=== PATIENT | female | born 1960 | race Caucasian/White ===

== ENCOUNTER 2021-10-16 19:34 | Inpatient (IN) | payer SELFPAY ==
[2021-10-16] MEDS ORDERED: METOCLOPRAMIDE 10 MG/2 ML INJ IV ONE (20:29)
[2021-10-16] MEDS ORDERED: LACTATED RINGERS 1,000 ML IV ONE (20:29)
[2021-10-16] MEDS ORDERED: diphenhydrAMINE 50 MG/ML VIAL IV ONE (20:29)
--- NOTE | 2021-10-16 20:42 | Emergency Department Report ---
ED General Adult HPI - General Chief complaint: Syncope Stated complaint: SYNCOPE/WEAKNESS PUI?: No Time Seen by Provider: 10/16/21 20:22 Source: patient, family, EMS ( EMS documentation not available at time of chart dictation ), RN notes reviewed Mode of arrival: Stretcher Limitations: Language Barrier - History of Present Illness Initial comments: Doreen japanese interpreter [id number] This is a 61-year-old female who is currently visiting from [facility], for the past 6 months. She has a history of hypertension. She does not have a local primary care doctor. She presents to the ER today with a complaint of headache, muscle cramping and spasms, and loss of consciousness. As per the family, patient has a history of hypokalemia, and has been seen at [facility] a few months ago for low potassium levels. Patient presents to the ER today with a complaint of headache which is frontal and bitemporal, constant since 10:00 in the morning, and not described as sudden or thunderclap in nature. The patient denies loss of vision, chest pain, abdominal pain, shortness of breath, extremity weakness/numbness, and hematemesis/bright red blood per rectum. She does endorse muscular cramping. Apparently she went to an outpatient clinic, hours after her headache started, where she had a loss of consciousness. As per family she is COVID-19 vaccinated. -: Gradual, hour(s) Location: head Consistency: intermittent Improves with: none Worsens with: none - Related Data Allergies Allergy/AdvReac Type Severity Reaction Status Date / Time No Known Allergies Allergy Verified 10/16/21 21:08 ED Review of Systems ROS: Stated complaint: SYNCOPE/WEAKNESS Other details as noted in HPI Constitutional: denies: fever Eyes: denies: eye discharge, vision change ENT: denies: epistaxis Respiratory: denies: cough Cardiovascular: syncope. denies: chest pain Gastrointestinal: denies: abdominal pain, vomiting, hematemesis, melena, hematochezia Neurological: headache, weakness Hematological/Lymphatic: denies: easy bleeding ED Physical Exam - General Limitations: Language Barrier General appearance: alert, in no apparent distress - Head Head exam: Present: atraumatic, normocephalic - Eye Eye exam: Present: normal appearance, PERRL, EOMI. Absent: nystagmus - ENT ENT exam: Present: normal exam, normal orophraynx, mucous membranes moist, normal external ear exam - Neck Neck exam: Present: normal inspection, full ROM. Absent: tenderness, meningismus - Respiratory Respiratory exam: Present: normal lung sounds bilaterally. Absent: respiratory distress, wheezes, rales, rhonchi, stridor, decreased breath sounds - Cardiovascular Cardiovascular Exam: Present: regular rate, normal rhythm, normal heart sounds. Absent: bradycardia, tachycardia, irregular rhythm, systolic murmur, diastolic murmur, rubs, gallop - GI/Abdominal GI/Abdominal exam: Present: soft. Absent: distended, guarding, rebound, rigid, pulsatile mass - Extremities Exam Extremities exam: Present: normal inspection, full ROM, other (2+ pulses noted i n the bilateral upper and lower extremities. There is no palpable cord. negative Homans sign. Muscular compartments are soft. The pelvis is stable.). Absent: pedal edema, calf tenderness - Back Exam Back exam: Present: normal inspection, full ROM. Absent: tenderness, CVA tenderness (R), CVA tenderness (L), paraspinal tenderness, vertebral tenderness - Neurological Exam Neurological exam: Present: alert, oriented X3, other (No facial droop. Tongue midline. Extraocular movements intact bilaterally. Facial sensation intact to light touch in V1, V2, V3 distribution bilaterally. 5 and a 5 strength in 4 extremities. Sensation intact to light touch in 4 extremities.). Absent: motor sensory deficit - Psychiatric Psychiatric exam: Present: flat affect - Skin Skin exam: Present: warm, dry, intact, normal color. Absent: rash ED Course Vital Signs 10/16/21 10/16/21 10/16/21 20:28 21:22 21:28 Temperature 98.2 F Pulse Rate 78 Respiratory 16 16 Rate Blood Pressure 135/76 [Left] O2 Sat by Pulse 98 98 Oximetry - Reevaluation(s) Reevaluation #1: 10/16/21 22:18 Differential diagnosis, including but not limited to: Orthostasis, vagal event, structural cardiac disease, migraine headache, tension headache, cluster headache, conversion disorder, hypokalemia, intracranial hemorrhage Assessment and plan: 61-year-old female, who is afebrile, with reassuring vital signs, clinically sober, with a GCS of 15, no meningeal signs, no nuchal rigidity, nonfocal motor exam, presenting to the ER today with multiple c omplaints, including extremity cramping, headache, and loss of consciousness. Place patient on laboratory monitor. Treat her symptoms. Obtain x-ray the chest, and CT scan of the brain, CT angiogram of the brain. Discussed this with the patient and family. They articulated understanding. Leukocytosis is likely a stress reaction. Laboratory studies otherwise unremarkable, with exception of mild hypokalemia. We will replete this. Reassess after CT scans have resulted. Likely admit patient to the medical service for syncope. 10/16/21 23:02 Laboratory studies reviewed and appreciated. No further episodes of syncope. CT scan brain, CT angiogram head negative for acute findings. Repeat ex amination unchanged Dr Lalito Velásquez to admit to [facility] for syncope ED Medical Decision Making - Lab Data Result diagrams: 10/16/21 20:43 10/16/21 20:43 Vital Signs 10/16/21 10/16/21 10/16/21 20:28 21:22 21:28 Temperature 98.2 F Pulse Rate 78 Respiratory 16 16 Rate Blood Pressure 135/76 [Left] O2 Sat by Pulse 98 98 Oximetry Lab Results 10/16/21 10/16/21 10/16/21 Range/Units 20:43 20:43 20:43 WBC 19.0 H (4.5-11.0) K/mm3 RBC 4.01 (3.65-5.03) M/mm3 Hgb 11.5 (10.1-14.3) gm/dl Hct 33.2 (30.3-42.9) % MCV 83 (79-97) fl MCH 29 (28-32) pg MCHC 35 H (30-34) % RDW 11.9 L (13.2-15.2) % Plt Count 259 (140-440) K/mm3 Seg Neutrophils % K[place] PT 13.9 (12.2-14.9) Sec. INR 0.97 (0.87-1.13) Sodium 132 L (137-145) mmol/L Potassium 3.2 L (3.6-5.0) mmol/L Chloride 91.6 L (98-107) mmol/L Carbon Dioxide 24 (22-30) mmol/L Anion Gap 20 mmol/L BUN 16 (7-17) mg/dL Creatinine 0.6 (0.6-1.2) mg/dL Estimated GFR > 60 ml/min BUN/Creatinine Ratio 27 % Glucose 128 H (65-100) mg/dL Calcium 9.1 (8.4-10.2) mg/dL Magnesium 1.90 (1.7-2.3) mg/dL Total Bilirubin 0.60 (0.1-1.2) mg/dL AST 32 (5-40) units/L ALT 15 (7-56) units/L Alkaline Phosphatase 85 (35-129) units/L Troponin T < 0.010 (0.00-0.029) ng/mL Total Protein 7.8 (6.3-8.2) g/dL Albumin 4.0 (3.9-5) g/dL Albumin/Globulin Ratio 1.1 % Blood Type Antibody Screen 10/16/21 Range/Units 20:43 WBC (4.5-11.0) K/mm3 RBC (3.65-5.03) M/mm3 Hgb (10.1-14.3) gm/dl Hct (30.3-42.9) % MCV (79-97) fl MCH (28-32) pg MCHC (30-34) % RDW (13.2-15.2) % Plt Count (140-440) K/mm3 Seg Neutrophils % PT (12.2-14.9) Sec. INR (0.87-1.13) Sodium (137-145) mmol/L Potassium (3.6-5.0) mmol/L Chloride (98-107) mmol/L Carbon Dioxide (22-30) mmol/L Anion Gap mmol/L BUN (7-17) mg/dL Creatinine (0.6-1.2) mg/dL Estimated GFR ml/min BUN/Creatinine Ratio % Glucose (65-100) mg/dL Calcium (8.4-10.2) mg/dL Magnesium (1.7-2.3) mg/dL Total Bilirubin (0.1-1.2) mg/dL AST (5-40) units/L ALT (7-56) units/L Alkaline Phosphatase (35-129) units/L Troponin T (0.00-0.029) ng/mL Total Protein (6.3-8.2) g/dL Albumin (3.9-5) g/dL Albumin/Globulin Ratio % Blood Type A POSITIVE Antibody Screen Negative - EKG Data -: EKG Interpreted by [place] EKG shows normal: sinus rhythm Rate: normal - EKG Data When compared to previous EKG there are: previous EKG unavailable 10/16/21 22:15 The EKG is interpreted at 20: 50 Sinus rhythm, rate 71 bpm. Normal axis, normal P wave axis, left ventricular hypertrophy, QTC 4 5 3 ms. OK interval 207 ms. No prior for comparison. This is not a STEMI. - Radiology Data Radiology results: pending, report reviewed, image reviewed CHEST 1 VIEW 10/16/2021 8:46 PM INDICATION / CLINICAL INFORMATION: Syncope. COMPARISON: None available. FINDINGS: SUPPORT DEVICES: None. HEART / MEDIASTINUM: No significant abnormality. LUNGS / PLEURA: No significant pulmonary or pleural abnormality. No pneumothorax. ADDITIONAL FINDINGS: No significant additional findings. IMPRESSION: 1. No acute findings. Signer Name: Minal Guajardo MD Signed: 10/16/2021 8:57 PM Workstation Name: [id number] CT angio head INDICATION / CLINICAL INFORMATION: Headache / Syncope. TECHNIQUE: CT angiography of head was performed prior to and following admi nistration of 100 cc of Omnipaque 350 intravenous contrast. In addition to axial source images, reconstructed coronal and sagittal MPR series as well as thin slab coronal and sagittal MIP series were provided. . All CT scans at this location are performed using CT dose reduction for ALARA by means of automated exposure control. COMPARISON: CT head same date. FINDINGS: VASCULAR FINDINGS: INTRACRANIAL CIRCULATION: RIGHT ICA: The right petrous, cavernous, supraclinoid segments of the ICA demonstrate no significant abnormalities. The right supraclinoid bifurcation is patent. The right A1 segm ent is patent. RIGHT SRIDHAR: The right anterior cerebral artery demonstrates no evidence of aneurysm, severe stenosis, or occlusion. RIGHT MCA: The right MCA demonstrates no evidence of large vessel occlusion, aneurysm formation, or severe stenosis. LEFT ICA: The left petrous, cavernous, supraclinoid segments of the ICA demonstrate no significant abnormalities. The left supraclinoid bifurcation is patent. The left A1 segment is patent. LEFT SRIDHAR: The left SRIDHAR demonstrates no evidence of aneurysm formation, occlusion, or severe stenosis. LEFT MCA: The left MCA demonstrates no evidence of large vessel occlusion, aneurysm formation, or severe stenosis. ANTERIOR COMMUNICATING ARTERY: No significant abnormality. POSTERIOR COMMUNICATING ARTERIES: Posterior communicating arteries are bilaterally absent, a normal anatomic variant. VERTEBRAL CONFLUENCE: The vertebral confluence demonstrates no significant abnormality. BASILAR ARTERY: Basilar artery demonstrates no significant abnormality. Bifurcation and bilateral P1 segments demonstrate patency without evidence of aneurysm formation, significant stenosis, or occlusion. RIGHT AMBULATORY CARE COORDINATOR: The right AMBULATORY CARE COORDINATOR demonstrates no evidence of occlusion, aneurysm formation, or severe stenosis. LEFT AMBULATORY CARE COORDINATOR: The left AMBULATORY CARE COORDINATOR demonstrates no evidence of occlusion, aneurysm formation, or severe stenosis. DURAL SINUSES AND CORTICAL DURAL VEINS: The dural sinuses and cortical dural veins demonstrate no significant abnormalities. NONVASCULAR FINDINGS: The intracranial contents, intraorbital contents, paranasal sinuses, mastoid air cells, soft tissues and musculature of the face, soft tissues and musculature of the neck, thyroid, and upper chest demonstrate no significant abnormalities. IMPRESSION: 1. No evidence of large vessel occlusion, aneurysm formation, or severe stenosis involving the anterior or posterior intracranial arterial circulation. 2. Dural sinuses and cortical dural veins demonstrate no significant abnormalities. 3. Nonvascular structures demonstrate no significant abnormality. Signer Name: Tomas Wilson II, MD Signed: 10/16/2021 9:50 PM Workstation Name: [employer] CT HEAD WITHOUT CONTRAST INDICATION / CLINICAL INFORMATION: Headache / Syncope. TECHNIQUE: CT head was performed without administration of intravenous contrast. All CT scans at this location are performed using CT dose reduction for ALARA by means of automated exposure control. COMPARISON: None available. FINDINGS: CEREBRAL PARENCHYMA: No significant abnormality. No acute territorial infarct. HEMORRHAGE: None. EXTRA-AXIAL SPACES: Normal in size and morphology for the patient's age. VENTRICULAR SYSTEM: Normal in size and morphology for the patient's age. MIDLINE SHIFT / HERNIATION: None. CEREBELLUM / BRAINSTEM: No significant abnormality. ORBITS: Normal as visualized. SOFT TISSUES: No significant abnormality. SKULL: No significant abnormality. PARANASAL SINUSES / MASTOID AIR CELLS: Normal as visualized. ADDITIONAL FINDINGS: None. IMP RESSION: 1. No acute intracranial abnormality. Signer Name: Tomas Wilson II, MD Signed: 10/16/2021 9:46 PM Workstation Name: [employer] Critical care attestation.: If time is entered above; I have spent that time in minutes in the direct care of this critically ill patient, excluding procedure time. ED Disposition Clinical Impression: Syncope, Headache, Hypokalemia Disposition: 09 ADMITTED INPATIENT Is pt being admited?: Yes Does the pt Need Aspirin: No Condition: Good
[2021-10-16 21:05] LABS: Hematocrit 33.2 % (30.3-42.9); Hemoglobin 11.5 gm/dl (10.1-14.3); Mean Corpuscular HGB Conc 35 % (30-34); Mean Corpuscular Volume 83 fl (79-97); Platelet Count 259 K/mm3 (140-440); Red Blood Count 4.01 M/mm3 (3.65-5.03); Red Cell Distribution Width 11.9 % (13.2-15.2)
[2021-10-16 21:14] LABS: INR 0.97 (0.87-1.13)
[2021-10-16 21:35] LABS: Alanine Aminotransferase 15 units/L (7-56); Blood Urea Nitrogen 16 mg/dL (7-17); Calcium 9.1 mg/dL (8.4-10.2); Hemolysis Index 118
[2021-10-16 21:43] LABS: BUN/Creatinine Ratio 27
--- NOTE | 2021-10-16 22:01 | XRay Report ---
CHEST 1 VIEW 10/16/2021 8:46 PM INDICATION / CLINICAL INFORMATION: Syncope. COMPARISON: None available. FINDINGS: SUPPORT DEVICES: None. HEART / MEDIASTINUM: No significant abnormality. LUNGS / PLEURA: No significant pulmonary or pleural abnormality. No pneumothorax. ADDITIONAL FINDINGS: No significant additional findings. IMPRESSION: 1. No acute findings. Signer Name: Minal Guajardo MD Signed: 10/16/2021 9:57 PM Workstation Name: [id number]
[2021-10-16] MEDS ORDERED: POTASSIUM CHLORIDE ER 20 MEQ TAB PO ONE (22:14)
--- NOTE | 2021-10-16 22:50 | Cat Scan Report ---
CT HEAD WITHOUT CONTRAST INDICATION / CLINICAL INFORMATION: Headache / Syncope. TECHNIQUE: CT head was performed without administration of intravenous contrast. All CT scans at this location are performed using CT dose reduction for ALARA by means of automated exposure control. COMPARISON: None available. FINDINGS: CEREBRAL PARENCHYMA: No significant abnormality. No acute territorial infarct. HEMORRHAGE: None. EXTRA-AXIAL SPACES: Normal in size and morphology for the patient's age. VENTRICULAR SYSTEM: Normal in size and morphology for the patient's age. MIDLINE SHIFT / HERNIATION: None. CEREBELLUM / BRAINSTEM: No significant abnormality. ORBITS: Normal as visualized. SOFT TISSUES: No significant abnormality. SKULL: No significant abnormality. PARANASAL SINUSES / MASTOID AIR CELLS: Normal as visualized. ADDITIONAL FINDINGS: None. IMPRESSION: 1. No acute intracranial abnormality. Signer Name: Tomas Wilson II, MD Signed: 10/16/2021 10:46 PM Workstation Name: [id number]
--- NOTE | 2021-10-16 22:54 | Cat Scan Report ---
CT angio head INDICATION / CLINICAL INFORMATION: Headache / Syncope. TECHNIQUE: CT angiography of head was performed prior to and following administration of 100 cc of Omnipaque 350 intravenous contrast. In addition to axial source images, reconstructed coronal and sag ittal MPR series as well as thin slab coronal and sagittal MIP series were provided. . All CT scans at this location are performed using CT dose reduction for ALARA by means of automated exposure contr ol. COMPARISON: CT head same date. FINDINGS: VASCULAR FINDINGS: INTRACRANIAL CIRCULATION: RIGHT ICA: The right petrous, cavernous, supraclinoid segments of the ICA demonstrate no significant abnormalities. The right supraclinoid bifurcation is patent. The right A1 segment is patent. RIGHT SRIDHAR: The right anterior cerebral artery demonstrates no evidence of aneurysm, severe stenosis, or occlusion. RIGHT MCA: The right MCA demonstrates no evidence of large vessel occlusion, aneurysm formation, or s evere stenosis. LEFT ICA: The left petrous, cavernous, supraclinoid segments of the ICA demonstrate no significant ab normalities. The left supraclinoid bifurcation is patent. The left A1 segment is patent. LEFT SRIDHAR: The left SRIDHAR demonstrates no evidence of aneurysm formation, occlusion, or severe stenosis. LEFT MCA: The left MCA demonstrates no evidence of large vessel occlusion, aneurysm formation, or sev ere stenosis. ANTERIOR COMMUNICATING ARTERY: No significant abnormality. POSTERIOR COMMUNICATING ARTERIES: Posterior communicating arteries are bilaterally absent, a normal a natomic variant. VERTEBRAL CONFLUENCE: The vertebral confluence demonstrates no significant abnormality. BASILAR ARTERY: Basilar artery demonstrates no significant abnormality. Bifurcation and bilateral P1 segments demonstrate patency without evidence of aneurysm formation, significant stenosis, or occlusi on. RIGHT GLASS BULB MACHINE ADJUSTER: The right GLASS BULB MACHINE ADJUSTER demonstrates no evidence of occlusion, aneurysm formation, or severe stenosi s. LEFT GLASS BULB MACHINE ADJUSTER: The left GLASS BULB MACHINE ADJUSTER demonstrates no evidence of occlusion, aneurysm formation, or severe stenosis. DURAL SINUSES AND CORTICAL DURAL VEINS: The dural sinuses and cortical dural veins demonstrate no sig nificant abnormalities. NONVASCULAR FINDINGS: The intracranial contents, intraorbital contents, paranasal sinuses, mastoid air cells, soft tissues and musculature of the face, soft tissues and musculature of the neck, thyroid, and upper chest demon strate no significant abnormalities. IMPRESSION: 1. No evidence of large vessel occlusion, aneurysm formation, or severe stenosis involving the anteri or or posterior intracranial arterial circulation. 2. Dural sinuses and cortical dural veins demonstrate no significant abnormalities. 3. Nonvascular structures demonstrate no significant abnormality. Signer Name: Tomas Wilson II, MD Signed: 10/16/2021 10:50 PM Workstation Name: [id number]
[2021-10-16 23:14] LABS: Total Cells Counted 100
[2021-10-16 23:15] LABS: Basophils % (Manual) 0 % (0.0-1.8); Eosinophils % (Manual) 0 % (0.0-4.3); Monocytes % (Manual) 0 % (0.0-7.3); Platelet Estimate Consistent w Auto; RBC Morphology Normal
[2021-10-16] MEDS ORDERED: MORPHINE 4 MG/1 ML INJ IV PRN (23:26)
[2021-10-16] MEDS ORDERED: ONDANSETRON 4 MG/2 ML INJ IV PRN (23:26)
[2021-10-16] MEDS ORDERED: ACETAMINOPHEN 325 MG TAB PO PRN (23:26)
[2021-10-16] MEDS ORDERED: MORPHINE 2 MG/1 ML INJ IV PRN (23:26)
[2021-10-16] MEDS ORDERED: MAGNESIUM HYDROXIDE (MOM) ORAL LIQD UDC PO PRN (23:26)
--- NOTE | 2021-10-16 23:32 | History and Physical Report ---
History of Present Illness Date of examination: 10/16/21 Date of admission: 10/16/2021 Chief complaint: Syncope History of present illness: 61-year-old Russian female with significant past medical history of hypertension presenting to the emergency room today with headache, muscle cramping 7 spasms and syncope. Patient is said to have been having a frontal headache since 10 AM this morning. She subsequently had nausea and vomiting later in the evening. There has been no abdominal pain. No fever or chills, no neck stiffness, no blurry vision. There has been no chest pain or shortness of breath, no abdominal pain, no hematuria or dysuria. Patient has been in the [place] for about 6 months and has had no recent travels since then. Denies any sick contacts. No contact with anyone with COVID-19. Patient has had 2 doses of the COVID-19 vaccine. Daughter who was by the bedside gave most of the history and indicates that patient had a similar episode about 3 months ago and was taken to [facility] where she was diagnosed with hypokalemia. She was not admitted during that visit but had some IV potassium while in the emergency room and subsequently sent home. Work-up in the emergency room today, lab was significant for leukocytosis of 19, hypokalemia of 3.2, mild hyponatremia 132. CT of the head, CTA of the head and chest x-ray were unremarkable. Past History Past Medical History: hypertension Past Surgical History: No surgical history Social history: no significant social history Family history: no significant family history Medications and Allergies Allergies Allergy/AdvReac Type Severity Reaction Status Date / Time No Known Allergies Allergy Verified 10/16/21 21:08 Review of Systems Constitutional: no fever, no chills Ears, nose, mouth and throat: no nasal congestion, no sore throat Cardiovascular: no chest pain, no palpitations Respiratory: no cough, no shortness of breath Gastrointestinal: nausea, vomiting, no abdominal pain, no BRBPR, no melena Genitourinary Female: no flank pain, no dysuria, no hematuria Musculoskeletal: no neck pain, no low back pain Integumentary: no rash, no pruritis Neurological: syncope, headaches, no vertigo, no confusion Psychiatric: no anxiety, no depression Endocrine: no polyphagia, no polydipsia, no polyuria, no nocturia Exam - Constitutional Vitals: Temp Pulse Resp BP Pulse Ox 98.2 F 78 16 135/76 98 10/16/21 20:28 10/16/21 21:22 10/16/21 21:28 10/16/21 21:22 10/16/21 21:28 General appearance: Present: no acute distress, well-nourished - EENT Eyes: Present: PERRL, EOM intact. Absent: scleral icterus ENT: hearing intact, clear oral mucosa, dentition normal - Neck Neck: Present: supple, normal ROM - Respiratory Respiratory effort: normal Respiratory: bilateral: CTA - Cardiovascular Heart Sounds: Present: S1 & S2. Absent: gallop, systolic murmur, diastolic murmur, rub, click - Extremities Extremities: no ischemia, pulses intact, pulses symmetrical, No edema, normal temperature, normal color, Full ROM Peripheral Pulses: within normal limits - Abdominal General gastrointestinal: Present: soft, non-tender, non-distended, normal bowel sounds. Absent: mass - Integumentary Integumentary: Present: clear, warm, dry, normal turgor. Absent: rash - Musculoskeletal Musculoskeletal: strength equal bilaterally - Psychiatric Psychiatric: appropriate mood/affect, intact judgment & insight, memory intact, cooperative - Neurologic Neurologic: CNII-XII intact, no focal deficits, moves all extremities HEART Score - HEART Score Troponin: Troponin T < 0.010 ng/mL (0.00-0.029) 10/16/21 20:43 Results - Labs CBC & Chem 7: 10/16/21 20:43 10/16/21 20:43 Labs: Abnormal lab results 10/16/21 10/16/21 Range/Units 20:43 20:43 WBC 19.0 H (4.5-11.0) K/mm3 MCHC 35 H (30-34) % RDW 11.9 L (13.2-15.2) % Seg Neuts % (Manual) 98.0 H (40.0-70.0) % Lymphocytes % (Manual) 2.0 L (13.4-35.0) % Seg Neutrophils # Man 18.6 H (1.8-7.7) K/mm3 Lymphocytes # (Manual) 0.4 L (1.2-5.4) K/mm3 Sodium 132 L (137-145) mmol/L Potassium 3.2 L (3.6-5.0) mmol/L Chloride 91.6 L (98-107) mmol/L Glucose 128 H (65-100) mg/dL Assessment and Plan - Patient Problems (1) Headache Current Visit: Yes Status: Acute Plan to address problem: Etiology is unclear. Work-up so far has been negative. We will place consult to neurology for evaluation and recommendations. Meanwhile patient will be scheduled for MRI of the brain. (2) Hypokalemia Current Visit: Yes Status: Acute Plan to address problem: Potassium will be repleted and will monitor chemistry. (3) Syncope Current Visit: Yes Status: Acute Plan to address problem: Patient will be scheduled for carotid Doppler, echocardiogram. We also follow-up on MRI of the brain. (4) DVT prophylaxis Current Visit: Yes Status: Acute Plan to address problem: Patient placed on subcutaneous heparin. (5) Full code status Current Visit: Yes Status: Acute Plan to address problem: Patient is full code.
[2021-10-17 05:12] LABS: Basophils % (Auto) 0.1 % (0.0-1.8); Eosinophils # (Auto) 0.1 K/mm3 (0.0-0.4); Eosinophils % (Auto) 0.7 % (0.0-4.3); Hematocrit 33.3 % (30.3-42.9); Hemoglobin 11.1 gm/dl (10.1-14.3); Lymphocytes # (Auto) 1.5 K/mm3 (1.2-5.4); Lymphocytes % (Auto) 9.8 % (13.4-35.0); Mean Corpuscular HGB Conc 34 % (30-34); Mean Corpuscular Volume 83 fl (79-97); Monocytes # (Auto) 0.5 K/mm3 (0.0-0.8); Platelet Count 238 K/mm3 (140-440); Red Cell Distribution Width 12.2 % (13.2-15.2)
[2021-10-17 05:26] LABS: Blood Urea Nitrogen 14 mg/dL (7-17); Calcium 9.4 mg/dL (8.4-10.2); Hemolysis Index 0
[2021-10-17 05:29] LABS: BUN/Creatinine Ratio 20
[2021-10-17] MEDS ORDERED: POTASSIUM CHLORIDE ER 20 MEQ TAB PO ONE (06:02)
[2021-10-17] MEDS ORDERED: POTASSIUM CHLORIDE 10 MEQ 10 MEQ/100 ML BAG IV ONE (06:02)
--- NOTE | 2021-10-17 10:28 | Progress Note ---
Assessment and Plan Assessment and plan: 61-year-old Polish female with significant past medical history of hypertension presenting to the emergency room today with headache, muscle cramping spasms and syncope. Work-up in the emergency room revealed labs significant for leukocytosis of 19, hypokalemia of 3.2, mild hyponatremia 132. CT of the head, CTA of the head and chest x-ray were unremarkable. Headache Hypokalemia Syncope 10/17/2021. Patient reports her headache is improved but still present. CT and CTA of the head were found to be negative. Await MRI of brain results as well as echocardiogram. The daughter reports that patient was noted to have had a blood pressure in the 80s associated with a syncopal episode. I suspect patient's syncope is related to orthostasis. Check orthostatic vital signs History Interval history: No new issues overnight. Hospitalist Physical - Constitutional Vitals: Temp Pulse Resp BP Pulse Ox 98.8 F 75 22 129/73 97 10/17/21 07:55 10/17/21 07:55 10/17/21 07:55 10/17/21 07:58 10/17/21 07:55 General appearance: Present: no acute distress, well-nourished - EENT Eyes: Present: PERRL, EOM intact ENT: hearing intact, clear oral mucosa, dentition normal - Neck Neck: Present: supple, normal ROM - Respiratory Respiratory effort: normal Respiratory: bilateral: CTA - Cardiovascular Rhythm: regular Heart Sounds: Present: S1 & S2. Absent: gallop, rub - Extremities Extremities: no ischemia, No edema, Full ROM - Abdominal General gastrointestinal: soft, non-tender, non-distended, normal bowel sounds - Integumentary Integumentary: Present: clear, warm, dry - Neurologic Neurologic: CNII-XII intact, moves all extremities HEART Score - HEART Score Troponin: Troponin T < 0.010 ng/mL (0.00-0.029) 10/16/21 20:43 Results - Labs CBC & Chem 7: 10/17/21 04:49 10/17/21 04:49 Labs: Laboratory Last Values WBC 14.9 K/mm3 (4.5-11.0) H 10/17/21 04:49 RBC 4.00 M/mm3 (3.65-5.03) 10/17/21 04:49 Hgb 11.1 gm/dl (10.1-14.3) 10/17/21 04:49 Hct 33.3 % (30.3-42.9) 10/17/21 04:49 MCV 83 fl (79-97) 10/17/21 04:49 MCH 28 pg (28-32) 10/17/21 04:49 MCHC 34 % (30-34) 10/17/21 04:49 RDW 12.2 % (13.2-15.2) L 10/17/21 04:49 Plt Count 238 K/mm3 (140-440) 10/17/21 04:49 Lymph % (Auto) 9.8 % (13.4-35.0) L 10/17/21 04:49 Ashley % (Auto) 3.0 % (0.0-7.3) 10/17/21 04:49 Eos % (Auto) 0.7 % (0.0-4.3) 10/17/21 04:49 Baso % (Auto) 0.1 % (0.0-1.8) 10/17/21 04:49 Lymph # (Auto) 1.5 K/mm3 (1.2-5.4) 10/17/21 04:49 Ashley # (Auto) 0.5 K/mm3 (0.0-0.8) 10/17/21 04:49 Eos # (Auto) 0.1 K/mm3 (0.0-0.4) 10/17/21 04:49 Baso # (Auto) 0.0 K/mm3 (0.0-0.1) 10/17/21 04:49 Add Manual Diff Complete 10/16/21 20:43 Total Counted 100 10/16/21 20:43 Seg Neutrophils % 86.4 % (40.0-70.0) H 10/17/21 04:49 Seg Neuts % (Manual) 98.0 % (40.0-70.0) H 10/16/21 20:43 Band Neutrophils % 0 % 10/16/21 20:43 Lymphocytes % (Manual) 2.0 % (13.4-35.0) L 10/16/21 20:43 Reactive Lymphs % (Man) 0 % 10/16/21 20:43 Monocytes % (Manual) 0 % (0.0-7.3) 10/16/21 20:43 Eosinophils % (Manual) 0 % (0.0-4.3) 10/16/21 20:43 Basophils % (Manual) 0 % (0.0-1.8) 10/16/21 20:43 Metamyelocytes % 0 % 10/16/21 20:43 Myelocytes % 0 % 10/16/21 20:43 Promyelocytes % 0 % 10/16/21 20:43 Blast Cells % 0 % 10/16/21 20:43 Nucleated RBC % Not Reportable 10/16/21 20:43 Seg Neutrophils # 12.8 K/mm3 (1.8-7.7) H 10/17/21 04:49 Seg Neutrophils # Man 18.6 K/mm3 (1.8-7.7) H 10/16/21 20:43 Band Neutrophils # 0.0 K/mm3 10/16/21 20:43 Lymphocytes # (Manual) 0.4 K/mm3 (1.2-5.4) L 10/16/21 20:43 Abs React Lymphs (Man) 0.0 K/mm3 10/16/21 20:43 Monocytes # (Manual) 0.0 K/mm3 (0.0-0.8) 10/16/21 20:43 Eosinophils # (Manual) 0.0 K/mm3 (0.0-0.4) 10/16/21 20:43 Basophils # (Manual) 0.0 K/mm3 (0.0-0.1) 10/16/21 20:43 Metamyelocytes # 0.0 K/mm3 10/16/21 20:43 Myelocytes # 0.0 K/mm3 10/16/21 20:43 Promyelocytes # 0.0 K/mm3 10/16/21 20:43 Blast Cells # 0.0 K/mm3 10/16/21 20:43 WBC Morphology Not Reportable 10/16/21 20:43 Hypersegmented Neuts Not Reportable 10/16/21 20:43 Hyposegmented Neuts Not Reportable 10/16/21 20:43 Hypogranular Neuts Not Reportable 10/16/21 20:43 Smudge Cells Not Reportable 10/16/21 20:43 Toxic Granulation Not Reportable 10/16/21 20:43 Toxic Vacuolation Not Reportable 10/16/21 20:43 Dohle Bodies Not Reportable 10/16/21 20:43 Pelger-Huet Anomaly Not Reportable 10/16/21 20:43 Malia Rods Not Reportable 10/16/21 20:43 Platelet Estimate Consistent w auto 10/16/21 20:43 Clumped Platelets Not Reportable 10/16/21 20:43 Plt Clumps, EDTA Not Reportable 10/16/21 20:43 Large Platelets Not Reportable 10/16/21 20:43 Giant Platelets Not Reportable 10/16/21 20:43 Platelet Satelliting Not Reportable 10/16/21 20:43 Plt Morphology Comment Not Reportable 10/16/21 20:43 RBC Morphology Normal 10/16/21 20:43 Dimorphic RBCs Not Reportable 10/16/21 20:43 Polychromasia Not Reportable 10/16/21 20:43 Hypochromasia Not Reportable 10/16/21 20:43 Poikilocytosis Not Reportable 10/16/21 20:43 Anisocytosis Not Reportable 10/16/21 20:43 Microcytosis Not Reportable 10/16/21 20:43 Macrocytosis Not Reportable 10/16/21 20:43 Spherocytes Not Reportable 10/16/21 20:43 Pappenheimer Bodies Not Reportable 10/16/21 20:43 Sickle Cells Not Reportable 10/16/21 20:43 Target Cells Not Reportable 10/16/21 20:43 Tear Drop Cells Not Reportable 10/16/21 20:43 Ovalocytes Not Reportable 10/16/21 20:43 Helmet Cells Not Reportable 10/16/21 20:43 [place] Bodies Not Reportable 10/16/21 20:43 [place] Rings Not Reportable 10/16/21 20:43 Frank Cells Not Reportable 10/16/21 20:43 Bite Cells Not Reportable 10/16/21 20:43 Crenated Cell Not Reportable 10/16/21 20:43 Elliptocytes Not Reportable 10/16/21 20:43 Acanthocytes (Spur) Not Reportable 10/16/21 20:43 Rouleaux Not Reportable 10/16/21 20:43 Hemoglobin C Crystals Not Reportable 10/16/21 20:43 Schistocytes Not Reportable 10/16/21 20:43 Malaria parasites Not Reportable 10/16/21 20:43 Steven Bodies Not Reportable 10/16/21 20:43 Hem Pathologist Commnt No 10/16/21 20:43 PT 13.9 Sec. (12.2-14.9) 10/16/21 20:43 INR 0.97 (0.87-1.13) 10/16/21 20:43 Sodium 139 mmol/L (137-145) D 10/17/21 04:49 Potassium 2.8 mmol/L (3.6-5.0) L* 10/17/21 04:49 Chloride 99.3 mmol/L (98-107) 10/17/21 04:49 Carbon Dioxide 28 mmol/L (22-30) 10/17/21 04:49 Anion Gap 15 mmol/L 10/17/21 04:49 BUN 14 mg/dL (7-17) 10/17/21 04:49 Creatinine 0.7 mg/dL (0.6-1.2) 10/17/21 04:49 Estimated GFR > 60 ml/min 10/17/21 04:49 BUN/Creatinine Ratio 20 % 10/17/21 04:49 Glucose 108 mg/dL (65-100) H 10/17/21 04:49 Calcium 9.4 mg/dL (8.4-10.2) 10/17/21 04:49 Magnesium 1.90 mg/dL (1.7-2.3) 10/16/21 20:43 Total Bilirubin 0.60 mg/dL (0.1-1.2) 10/16/21 20:43 AST 32 units/L (5-40) 10/16/21 20:43 ALT 15 units/L (7-56) 10/16/21 20:43 Alkaline Phosphatase 85 units/L (35-129) 10/16/21 20:43 Troponin T < 0.010 ng/mL (0.00-0.029) 10/16/21 20:43 Total Protein 7.8 g/dL (6.3-8.2) 10/16/21 20:43 Albumin 4.0 g/dL (3.9-5) 10/16/21 20:43 Albumin/Globulin Ratio 1.1 % 10/16/21 20:43 Blood Type A POSITIVE 10/16/21 20:43 Antibody Screen Negative 10/16/21 20:43 Belcher/IV: Voiding Method Toilet Active Medications - Current Medications Current Medications: Generic Name Dose Route Start Last Admin Trade Name Freq PRN Reason Stop Dose Admin Acetaminophen 650 mg 10/16/21 23:26 Acetaminophen 325 Mg Tab PO Q4H PRN Pain MILD(1-3)/Fever >100.5/BANUELOS Magnesium Hydroxide 30 ml 10/16/21 23:26 Magnesium Hydroxide (Mom) Oral Liqd Udc PO Q4H PRN Constipation Morphine Sulfate 2 mg 10/16/21 23:26 Morphine 2 Mg/1 Ml Inj IV Q4H PRN Pain, Moderate (4-6) Morphine Sulfate 4 mg 10/16/21 23:26 Morphine 4 Mg/1 Ml Inj IV Q4H PRN Pain , Severe (7-10) Ondansetron HCl 4 mg 10/16/21 23:26 Ondansetron 4 Mg/2 Ml Inj IV Q8H PRN Nausea And Vomiting Sodium Chloride 10 ml 10/17/21 10:00 Sodium Chloride 0.9% 10 Ml Flush Syringe IV BID CARTER Sodium Chloride 10 ml 10/16/21 23:26 Sodium Chloride 0.9% 10 Ml Flush Syringe IV PRN PRN LINE FLUSH
--- NOTE | 2021-10-17 11:10 | Vascular Lab Report ---
DUPLEX DOPPLER ULTRASOUND CAROTID, BILATERAL INDICATION / CLINICAL INFORMATION: Syncope. COMPARISON: None available. FINDINGS: RIGHT CAROTID: - PLAQUE ESTIMATE (%): < 50% - CCA velocity: 95 cm/sec. - ICA peak systolic velocity: 124 cm/sec. - ICA/CCA PSV Ratio: 1.3 Right Vertebral Artery: Antegrade flow. LEFT CAROTID: - PLAQUE ESTIMATE: < 50% - CCA velocity: 101 cm/sec. - ICA peak systolic velocity: 98 cm/sec. - ICA/CCA PSV Ratio: 0.97 Left Vertebral Artery: Antegrade flow. IMPRESSION: 1. Right Internal Carotid Artery: Less than 50% diameter stenosis. 2. Left Internal Carotid Artery: Less than 50% diameter stenosis. Velocity criteria are extrapolated from diameter data as defined by the Society of Radiologists in Ul trasound Consensus Conference, Radiology 2003; 229;340-346. NO STENOSIS (NORMAL) * Plaque = none; ICA PSV < 125 cm/sec; ICA/CCA PSV Ratio < 2.0 <50% STENOSIS * Plaque < 50%; ICA PSV < 125 cm/sec; ICA/CCA PSV Ratio < 2.0 50-69% STENOSIS * Plaque > 50%; ICA PSV = 125-230 cm/sec; ICA/CCA PSV Ratio = 2.0-4.0 >70% BUT <100% STENOSIS * Plaque > 50%; ICA PSV > 230 cm/sec; ICA/CCA PSV Ratio > 4.0 NEAR OCCLUSION * Plaque = visible lumen; ICA PSV = high/low/none; ICA/CCA PSV Ratio = variable TOTAL OCCLUSION * Plaque = no lumen; ICA PSV = none; ICA/CCA PSV Ratio = N/A Signer Name: Jose A Barksdale MD Signed: 10/17/2021 11:05 AM Workstation Name: [id number]
--- NOTE | 2021-10-17 15:44 | Consultation ---
History of Present Illness Consult date: 10/17/21 Reason for Consult: Headache Chief complaint: Headache History of present illness: 61 yo female with htn who presents with waking up yesterday morning with a bifrontal, retro-orbital headache with an "explosive" sensation of headache that is throbbing in nature. She notes that her blood pressure yesterday morning was 160s/103. Notes no positional component. Currently, she notes her headache has resolved. In fact, the headache had started to improve yesterday evening when she presented to the ED (BP at the time had come down). She notes complete resolution of the headache was noted this morning when she woke up. She has otherwise been in her usual state of health. She notes a similar episode in June (2020) where she was evaluated at [facility] and noted with the same headache which improved after her hypokalemia was corrected. She was given a 10-day supply of potassium tabs at the time. She notes compliance with all her medications as prescribed. She denies any changes in her vision. Home meds include losartan and hctz. Past History Past Medical History: hypertension Past Surgical History: No surgical history Social history: no significant social history Family history: no significant family history Medications and Allergies Allergies Allergy/AdvReac Type Severity Reaction Status Date / Time No Known Allergies Allergy Verified 10/16/21 21:08 Active Meds: Active Medications Acetaminophen (Acetaminophen 325 Mg Tab) 650 mg PO Q4H PRN PRN Reason: Pain MILD(1-3)/Fever >100.5/BANUELOS Magnesium Hydroxide (Magnesium Hydroxide (Mom) Oral Liqd Udc) 30 ml PO Q4H PRN PRN Reason: Constipation Morphine Sulfate (Morphine 2 Mg/1 Ml Inj) 2 mg IV Q4H PRN PRN Reason: Pain, Moderate (4-6) Morphine Sulfate (Morphine 4 Mg/1 Ml Inj) 4 mg IV Q4H PRN PRN Reason: Pain , Severe (7-10) Ondansetron HCl (Ondansetron 4 Mg/2 Ml Inj) 4 mg IV Q8H PRN PRN Reason: Nausea And Vomiting Sodium Chloride (Sodium Chloride 0.9% 10 Ml Flush Syringe) 10 ml IV BID CARTER Sodium Chloride (Sodium Chloride 0.9% 10 Ml Flush Syringe) 10 ml IV PRN PRN PRN Reason: LINE FLUSH Physical Examination - Vital Signs Vital Signs: Vital Signs Temp 98.2 F 10/16/21 20:28 - Physical Exam Narrative exam: Gen: nad, well-nourished; Head: normocephalic; Eyes: no gaze deviation; no ptosis; ENT: normal vocalization; CVS: warm and well-perfused; Pulm: no respiratory distress; GI: appears non-distended; Ext: no cyanosis appreciated at distal extremities; Skin: no acute rash at distal extremities; Heme: no pathologic ecchymosis appreciated at distal extremities; Neuro: alert, oriented to name, age, month, year, surroundings, no dysarthria, no aphasia, CN 2 - PERRL, visual cortez grossly intact, CN 3, 4, 6 - EOMI, CN 5 - facial sensation symmetric to light touch, CN 7 - facial movement symmetric, CN 8 - hearing grossly intact, CN 9, 10 - uvula midline, CN 11 - shrug symmetric, CN 12 - tongue midline; Motor - at least 4+/5 at all exts 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; Sensory - light touch symmetric, Cerebellar - fnf /hts intact, Gait - deferred secondary to fall risk; Results - Laboratory Findings CBC and BMP: 10/17/21 04:49 10/17/21 04:49 Abnormal Lab Findings: Abnormal Labs 10/16/21 10/16/21 10/17/21 20:43 20:43 04:49 WBC 19.0 H 14.9 H MCHC 35 H RDW 11.9 L 12.2 L Lymph % (Auto) 9.8 L Seg Neutrophils % 86.4 H Seg Neuts % (Manual) 98.0 H Lymphocytes % (Manual) 2.0 L Seg Neutrophils # 12.8 H Seg Neutrophils # Man 18.6 H Lymphocytes # (Manual) 0.4 L Sodium 132 L Potassium 3.2 L Chloride 91.6 L Glucose 128 H 10/17/21 04:49 WBC MCHC RDW Lymph % (Auto) Seg Neutrophils % Seg Neuts % (Manual) Lymphocytes % (Manual) Seg Neutrophils # Seg Neutrophils # Man Lymphocytes # (Manual) Sodium Potassium 2.8 L* Chloride Glucose 108 H Assessment and Plan 61 yo female with htn who presents with an episode of headache, with onset when waking up yesterday morning with a bifrontal, retro-orbital headache with an "explosive" sensation of headache that was throbbing in nature, but resolved as of this morning when she woke up 1. Headache, NOS - conservative management only; ct/cta head/neck is unremarkable; mri brain results pending. 2. Hypertensive Emergency - noted improvement of headache when blood pressure was no longer high. 3. Hypokalemia - likely secondary to hctz w/o potassium supplementation; per primary team. 4. Leukocytosis - noted with a wbc of 19 and now with 14.5; workup per primary team. 5. Right Hand Weakness - f/u with Neurology as outpatient to confirm no peripheral etiology (if MR Brain reveals no etiology). 6. If MRI Brain wo contrast is unremarkable, no further acute neurologic intervention indicated at present. Oscar Spicer MD Neurology [id number]
--- NOTE | 2021-10-18 09:48 | Magnetic Resonance Report ---
MRI BRAIN 10/17/2021 INDICATION / CLINICAL INFORMATION: Headache, syncope. TECHNIQUE: Multiplanar, multisequence MR images of the brain were obtained. COMPARISON: None available. FINDINGS: BRAIN / INTRACRANIAL CONTENTS: Unenhanced MR images of the brain demonstrate no evidence of acute abn ormality. Ventricles and sulci are normal in size and shape. There is no evidence of acute ischemic injury, hemorrhage, or mass. A few scattered nonspecific white matter T2 weighted hyperintensities are present in the subcortical and deep white matter of cerebral hemispheres, consistent with mild chronic small vessel ischemic change. There are no abnormal extra-axial fluid collections. EXTRACRANIAL: Unremarkable CRANIOCERVICAL JUNCTION: No significant abnormality. VASCULAR FLOW-VOIDS: No significant abnormality. IMPRESSION: No acute abnormality. Signer Name: Igor Keenan MD Signed: 10/18/2021 9:44 AM Workstation Name: [id number]
--- NOTE | 2021-10-18 13:03 | Progress Note ---
Assessment and Plan Assessment and plan: 61-year-old [place]bour[place] female with significant past medical history of hypertension presenting to the emergency room today with headache, muscle cramping spasms and syncope. Work-up in the emergency room revealed labs significant for leukocytosis of 19, hypokalemia of 3.2, mild hyponatremia 132. CT of the head, CTA of the head and chest x-ray were unremarkable. Headache Hypokalemia Syncope 10/17/2021. Patient reports her headache is improved but still present. CT and CTA of the head were found to be negative. Await MRI of brain results as well as echocardiogram. The daughter reports that patient was noted to have had a blood pressure in the 80s associated with a syncopal episode. I suspect patient's syncope is related to orthostasis. Check orthostatic vital signs 10/18/2021. Neurology reports conservative management for headache. CT and CTA of the head, carotid ultrasound and MRI were found to be essentially negative. Echocardiogram also negative with a EF of 55%. Patient with orthostasis on admission which is the etiology of the syncope. We will recheck orthostatic vital signs and replete potassium History Interval history: No new issues overnight. Hospitalist Physical - Constitutional Vitals: Temp Pulse Resp BP Pulse Ox 98.2 F 68 16 110/67 100 10/18/21 08:50 10/18/21 08:50 10/18/21 08:50 10/18/21 08:50 10/18/21 08:50 General appearance: Present: no acute distress, well-nourished - EENT Eyes: Present: PERRL, EOM intact ENT: hearing intact, clear oral mucosa, dentition normal - Neck Neck: Present: supple, normal ROM - Respiratory Respiratory effort: normal Respiratory: bilateral: CTA - Cardiovascular Rhythm: regular Heart Sounds: Present: S1 & S2. Absent: gallop, rub - Extremities Extremities: no ischemia, No edema, Full ROM - Abdominal General gastrointestinal: soft, non-tender, non-distended, normal bowel sounds - Integumentary Integumentary: Present: clear, warm, dry - Neurologic Neurologic: CNII-XII intact, moves all extremities HEART Score - HEART Score Troponin: Troponin T < 0.010 ng/mL (0.00-0.029) 10/16/21 20:43 Results - Labs CBC & Chem 7: 10/17/21 04:49 10/17/21 04:49 Labs: Laboratory Last Values WBC 14.9 K/mm3 (4.5-11.0) H 10/17/21 04:49 RBC 4.00 M/mm3 (3.65-5.03) 10/17/21 04:49 Hgb 11.1 gm/dl (10.1-14.3) 10/17/21 04:49 Hct 33.3 % (30.3-42.9) 10/17/21 04:49 MCV 83 fl (79-97) 10/17/21 04:49 MCH 28 pg (28-32) 10/17/21 04:49 MCHC 34 % (30-34) 10/17/21 04:49 RDW 12.2 % (13.2-15.2) L 10/17/21 04:49 Plt Count 238 K/mm3 (140-440) 10/17/21 04:49 Lymph % (Auto) 9.8 % (13.4-35.0) L 10/17/21 04:49 [place] % (Auto) 3.0 % (0.0-7.3) 10/17/21 04:49 Eos % (Auto) 0.7 % (0.0-4.3) 10/17/21 04:49 Baso % (Auto) 0.1 % (0.0-1.8) 10/17/21 04:49 Lymph # (Auto) 1.5 K/mm3 (1.2-5.4) 10/17/21 04:49 [place] # (Auto) 0.5 K/mm3 (0.0-0.8) 10/17/21 04:49 Eos # (Auto) 0.1 K/mm3 (0.0-0.4) 10/17/21 04:49 Baso # (Auto) 0.0 K/mm3 (0.0-0.1) 10/17/21 04:49 Add Manual Diff Complete 10/16/21 20:43 Total Counted 100 10/16/21 20:43 Seg Neutrophils % 86.4 % (40.0-70.0) H 10/17/21 04:49 Seg Neuts % (Manual) 98.0 % (40.0-70.0) H 10/16/21 20:43 Band Neutrophils % 0 % 10/16/21 20:43 Lymphocytes % (Manual) 2.0 % (13.4-35.0) L 10/16/21 20:43 Reactive Lymphs % (Man) 0 % 10/16/21 20:43 Monocytes % (Manual) 0 % (0.0-7.3) 10/16/21 20:43 Eosinophils % (Manual) 0 % (0.0-4.3) 10/16/21 20:43 Basophils % (Manual) 0 % (0.0-1.8) 10/16/21 20:43 Metamyelocytes % 0 % 10/16/21 20:43 Myelocytes % 0 % 10/16/21 20:43 Promyelocytes % 0 % 10/16/21 20:43 Blast Cells % 0 % 10/16/21 20:43 Nucleated RBC % Not Reportable 10/16/21 20:43 Seg Neutrophils # 12.8 K/mm3 (1.8-7.7) H 10/17/21 04:49 Seg Neutrophils # Man 18.6 K/mm3 (1.8-7.7) H 10/16/21 20:43 Band Neutrophils # 0.0 K/mm3 10/16/21 20:43 Lymphocytes # (Manual) 0.4 K/mm3 (1.2-5.4) L 10/16/21 20:43 Abs React Lymphs (Man) 0.0 K/mm3 10/16/21 20:43 Monocytes # (Manual) 0.0 K/mm3 (0.0-0.8) 10/16/21 20:43 Eosinophils # (Manual) 0.0 K/mm3 (0.0-0.4) 10/16/21 20:43 Basophils # (Manual) 0.0 K/mm3 (0.0-0.1) 10/16/21 20:43 Metamyelocytes # 0.0 K/mm3 10/16/21 20:43 Myelocytes # 0.0 K/mm3 10/16/21 20:43 Promyelocytes # 0.0 K/mm3 10/16/21 20:43 Blast Cells # 0.0 K/mm3 10/16/21 20:43 WBC Morphology Not Reportable 10/16/21 20:43 Hypersegmented Neuts Not Reportable 10/16/21 20:43 Hyposegmented Neuts Not Reportable 10/16/21 20:43 Hypogranular Neuts Not Reportable 10/16/21 20:43 Smudge Cells Not Reportable 10/16/21 20:43 Toxic Granulation Not Reportable 10/16/21 20:43 Toxic Vacuolation Not Reportable 10/16/21 20:43 Dohle Bodies Not Reportable 10/16/21 20:43 Pelger-Huet Anomaly Not Reportable 10/16/21 20:43 Malia Rods Not Reportable 10/16/21 20:43 Platelet Estimate Consistent w auto 10/16/21 20:43 Clumped Platelets Not Reportable 10/16/21 20:43 Plt Clumps, EDTA Not Reportable 10/16/21 20:43 Large Platelets Not Reportable 10/16/21 20:43 Giant Platelets Not Reportable 10/16/21 20:43 Platelet Satelliting Not Reportable 10/16/21 20:43 Plt Morphology Comment Not Reportable 10/16/21 20:43 RBC Morphology Normal 10/16/21 20:43 Dimorphic RBCs Not Reportable 10/16/21 20:43 Polychromasia Not Reportable 10/16/21 20:43 Hypochromasia Not Reportable 10/16/21 20:43 Poikilocytosis Not Reportable 10/16/21 20:43 Anisocytosis Not Reportable 10/16/21 20:43 Microcytosis Not Reportable 10/16/21 20:43 Macrocytosis Not Reportable 10/16/21 20:43 Spherocytes Not Reportable 10/16/21 20:43 Pappenheimer Bodies Not Reportable 10/16/21 20:43 Sickle Cells Not Reportable 10/16/21 20:43 Target Cells Not Reportable 10/16/21 20:43 Tear Drop Cells Not Reportable 10/16/21 20:43 Ovalocytes Not Reportable 10/16/21 20:43 Helmet Cells Not Reportable 10/16/21 20:43 [place] Bodies Not Reportable 10/16/21 20:43 [place] Rings Not Reportable 10/16/21 20:43 Frank Cells Not Reportable 10/16/21 20:43 Bite Cells Not Reportable 10/16/21 20:43 Crenated Cell Not Reportable 10/16/21 20:43 Elliptocytes Not Reportable 10/16/21 20:43 Acanthocytes (Spur) Not Reportable 10/16/21 20:43 Rouleaux Not Reportable 10/16/21 20:43 Hemoglobin C Crystals Not Reportable 10/16/21 20:43 Schistocytes Not Reportable 10/16/21 20:43 Malaria parasites Not Reportable 10/16/21 20:43 Steven Bodies Not Reportable 10/16/21 20:43 Hem Pathologist Commnt No 10/16/21 20:43 PT 13.9 Sec. (12.2-14.9) 10/16/21 20:43 INR 0.97 (0.87-1.13) 10/16/21 20:43 Sodium 139 mmol/L (137-145) D 10/17/21 04:49 Potassium 2.8 mmol/L (3.6-5.0) L* 10/17/21 04:49 Chloride 99.3 mmol/L (98-107) 10/17/21 04:49 Carbon Dioxide 28 mmol/L (22-30) 10/17/21 04:49 Anion Gap 15 mmol/L 10/17/21 04:49 BUN 14 mg/dL (7-17) 10/17/21 04:49 Creatinine 0.7 mg/dL (0.6-1.2) 10/17/21 04:49 Estimated GFR > 60 ml/min 10/17/21 04:49 BUN/Creatinine Ratio 20 % 10/17/21 04:49 Glucose 108 mg/dL (65-100) H 10/17/21 04:49 POC Glucose 98 mg/dL (70-105) 10/17/21 22:09 Calcium 9.4 mg/dL (8.4-10.2) 10/17/21 04:49 Magnesium 1.90 mg/dL (1.7-2.3) 10/16/21 20:43 Total Bilirubin 0.60 mg/dL (0.1-1.2) 10/16/21 20:43 AST 32 units/L (5-40) 10/16/21 20:43 ALT 15 units/L (7-56) 10/16/21 20:43 Alkaline Phosphatase 85 units/L (35-129) 10/16/21 20:43 Troponin T < 0.010 ng/mL (0.00-0.029) 10/16/21 20:43 Total Protein 7.8 g/dL (6.3-8.2) 10/16/21 20:43 Albumin 4.0 g/dL (3.9-5) 10/16/21 20:43 Albumin/Globulin Ratio 1.1 % 10/16/21 20:43 Blood Type A POSITIVE 10/16/21 20:43 Antibody Screen Negative 10/16/21 20:43 Belcher/IV: Voiding Method Toilet Active Medications - Current Medications Current Medications: Generic Name Dose Route Start Last Admin Trade Name Freq PRN Reason Stop Dose Admin Acetaminophen 650 mg 10/16/21 23:26 Acetaminophen 325 Mg Tab PO Q4H PRN Pain MILD(1-3)/Fever >100.5/BANUELOS Magnesium Hydroxide 30 ml 10/16/21 23:26 Magnesium Hydroxide (Mom) Oral Liqd Udc PO Q4H PRN Constipation Morphine Sulfate 2 mg 10/16/21 23:26 Morphine 2 Mg/1 Ml Inj IV Q4H PRN Pain, Moderate (4-6) Morphine Sulfate 4 mg 10/16/21 23:26 Morphine 4 Mg/1 Ml Inj IV Q4H PRN Pain , Severe (7-10) Ondansetron HCl 4 mg 10/16/21 23:26 Ondansetron 4 Mg/2 Ml Inj IV Q8H PRN Nausea And Vomiting Sodium Chloride 10 ml 10/17/21 10:00 10/17/21 23:00 Sodium Chloride 0.9% 10 Ml Flush Syringe IV 10 ml BID CARTER Administration Sodium Chloride 10 ml 10/16/21 23:26 Sodium Chloride 0.9% 10 Ml Flush Syringe IV PRN PRN LINE FLUSH
--- NOTE | 2021-10-18 14:19 | Electrocardiograph Report ---
[facility] Test Date: 2021-10-16 Test Time: 20:50:10 Pat Name: MARI LABOY Department: Room: A466 1 Gender: F Hunter: FABIAN : 1960 Requested By: SHALINI NORWOOD Order Number: [id number] Reading MD: Aashish Valdez Measurements Intervals [place] Rate: 71 P: 6 W[place]: 207 QRS: 36 QRSD: 77 T: 18 QT: 416 QTc: 453 Interpretive Statements Sinus rhythm Consider left ventricular hypertrophy No previous ECG available for comparison Electronically Signed On 10-18-2021 14:19:11 EDT by Aashish Valdez
[2021-10-18 23:15] LABS: Blood Urea Nitrogen 22 mg/dL (7-17); Calcium 9.3 mg/dL (8.4-10.2); Hemolysis Index 4
[2021-10-18 23:18] LABS: BUN/Creatinine Ratio 31
[2021-10-19] MEDS ORDERED: ZOLPIDEM 5 MG TAB PO PRN (02:59)
[2021-10-19 06:24] LABS: Basophils % (Auto) 0.4 % (0.0-1.8); Eosinophils # (Auto) 0.4 K/mm3 (0.0-0.4); Eosinophils % (Auto) 6.1 % (0.0-4.3); Hematocrit 33.7 % (30.3-42.9); Hemoglobin 11.1 gm/dl (10.1-14.3); Lymphocytes # (Auto) 1.7 K/mm3 (1.2-5.4); Lymphocytes % (Auto) 29.7 % (13.4-35.0); Mean Corpuscular HGB Conc 33 % (30-34); Mean Corpuscular Volume 84 fl (79-97); Monocytes # (Auto) 0.3 K/mm3 (0.0-0.8); Monocytes % (Auto) 5.9 % (0.0-7.3); Platelet Count 268 K/mm3 (140-440); Red Blood Count 4.01 M/mm3 (3.65-5.03); Red Cell Distribution Width 11.6 % (13.2-15.2)
[2021-10-19 06:39] LABS: Blood Urea Nitrogen 17 mg/dL (7-17); Calcium 9.3 mg/dL (8.4-10.2); Hemolysis Index 3
[2021-10-19 06:46] LABS: BUN/Creatinine Ratio 24
--- NOTE | 2021-10-19 08:05 | Discharge Summary ---
Providers - Providers Date of Admission: 10/16/21 23:26 Date of discharge: 10/19/21 Attending physician: BELLE POTTER 10/17/21 11:24 Consult to Physician [CONS] Routine Comment: Consulting Provider: ALEXANDRIA SIMENTAL Physician Instructions: Reason For Exam: headache Primary care physician: [employer] [facility]IST Hospitalization Reason for admission: h/a Condition: Good Hospital course: 61-year-old female with significant past medical history of hypertension presenting to the emergency room today with headache, muscle cramping spasms and syncope. Work-up in the emergency room revealed labs significant for leukocytosis of 19, hypokalemia of 3.2, mild hyponatremia 132. CT of the head, CTA of the head and chest x-ray were unremarkable. The patient was admitted with diagnosis of headache, severe hypokalemia and syncope. Hospital course: 10/17/2021. Patient reports her headache is improved but still present. CT and CTA of the head were found to be negative. Await MRI of brain results as well as echocardiogram. The daughter reports that patient was noted to have had a blood pressure in the 80s associated with a syncopal episode. I suspect patient's syncope is related to orthostasis. Check orthostatic vital signs 10/18/2021. Neurology reports conservative management for headache. CT and CTA of the head, carotid ultrasound and MRI were found to be essentially negative. Echocardiogram also negative with a EF of 55%. Patient with orthostasis on admission which is the etiology of the syncope. We will recheck orthostatic vital signs and replete potassium 10/19/2021. The patient's headache has essentially resolved and she is felt to have received maximal hospital benefit. The patient received potassium prior to discharge. Patient is to follow-up with primary care physician. Dedicated discharge time 32 minutes Disposition: 30 STILL A PATIENT Final Discharge Diagnosis (Prints w/discharge instructions): Headache, severe hypokalemia and syncope Core Measure Documentation - Palliative Care Palliative Care/ Comfort Measures: Not Applicable - Core Measures Any of the following diagnoses?: none Exam - Constitutional Vitals: Temp Pulse Resp BP Pulse Ox 98.3 F 58 L 16 169/88 98 10/19/21 03:31 10/19/21 04:00 10/19/21 03:31 10/19/21 03:31 10/19/21 04:00 General appearance: Present: no acute distress, well-nourished - EENT Eyes: Present: PERRL ENT: hearing intact, clear oral mucosa - Neck Neck: Present: supple, normal ROM - Respiratory Respiratory effort: normal Respiratory: bilateral: CTA - Cardiovascular Heart Sounds: Present: S1 & S2. Absent: rub, click - Extremities Extremities: pulses symmetrical, No edema Peripheral Pulses: within normal limits - Abdominal General gastrointestinal: Present: soft, non-tender, non-distended, normal bowel sounds Female genitourinary: Present: normal - Integumentary Integumentary: Present: clear, warm, dry - Musculoskeletal Musculoskeletal: gait normal, strength equal bilaterally - Psychiatric Psychiatric: appropriate mood/affect, intact judgment & insight - Neurologic Neurologic: CNII-XII intact, moves all extremities Plan Activity: advance as tolerated Weight Bearing Status: Weight Bear as Tolerated Diet: regular Follow up with: PRIMARY CARE, [Primary Care Provider] - 3-5 Days
[2021-10-19] MEDS ORDERED: POTASSIUM CHLORIDE ER 20 MEQ TAB PO SCH ×2 (09:00→13:00)
[2021-10-19 11:50] VITALS: BP 146/87
== END 2021-10-19 15:33 | disposition home or self-care (01) | DRG 305 ==
LOC: ED 19:34 → 4A 23:26
PROVIDERS: ADMIT Internal Medicine Geriatric Medicine; ATTEND Hospitalist
DX: I16.1 Hypertensive emergency (principal); R55 Syncope and collapse; E87.6 Hypokalemia; I10 Essential (primary) hypertension
CPT/HCPCS: 36415; 70450; 70496; 70551; 71045; 80048; 80053; 82962; 83735; 84484; 85007; 85025; 85610; 86850; 86900; 86901; 93005; 93306; 93880; G0378; C8929; J1200; J2270; J2405; J2765; J3480; J7120; Q9967